=== PATIENT | male | born 1955 | race Caucasian/White ===

== ENCOUNTER → 2022-03-04 09:49 | Outpatient (CLI) | payer BC, SELFPAY ==
--- NOTE | 2022-03-04 09:55 | XR_ITS ---
FINAL REPORT CLINICAL HISTORY: LT HAND PAIN,R/O FB FINDINGS: LEFT HAND Three views demonstrate no acute fracture or dislocation. There is mild and moderate degenerative change of the 1st carpometacarpal joint. The soft tissues are unremarkable. IMPRESSION: Degenerative change with no acute process. Reviewed, Interpreted and Dictated by Micah Quiñones III, MD Transcribed by Tesha Bang Authenticated by Micah Quiñones III, MD on 03/04/2022 11:10:09 AM [facility]
--- NOTE | 2022-03-04 09:55 | XR_ITS ---
FINAL REPORT CLINICAL HISTORY: RT HAND PAIN, R/O FB FINDINGS: RIGHT HAND Three views demonstrate no acute fracture or dislocation. There is mild and moderate degenerative change, worst in the 1st carpometacarpal joint. There is dorsal hand soft tissue swelling. IMPRESSION: Soft tissue swelling with no acute bony abnormality. Reviewed, Interpreted and Dictated by Micah Quiñones III, MD Transcribed by Tesha Bang Authenticated by Micah Quiñones III, MD on 03/04/2022 11:10:[address] [facility]
== END ==
PROVIDERS: PCP Internal Medicine Adolescent Medicine; Visit Provider Nurse Practitioner Family
DX: M79.641 Pain in right hand (principal); M79.642 Pain in left hand
CPT/HCPCS: 73130

== ENCOUNTER → 2023-08-13 07:58 | Outpatient (CLI) | payer BC, SELFPAY ==
--- NOTE | 2023-08-13 08:21 | XR_ITS ---
PROCEDURE INFORMATION: Exam: XR Chest Exam date and time: 08/13/2023 8:23 AM Age: 67 years old Clinical indication: Cough; Additional info: Chronic cough TECHNIQUE: Imaging protocol: Radiologic exam of the chest. Views: 2 views. COMPARISON: No relevant prior studies available. FINDINGS: Lungs: No consolidation. Pleural spaces: No pleural effusion. No pneumothorax. Heart/Mediastinum: No cardiomegaly. Bones/joints: There are degenerative changes of the spine. IMPRESSION: There is no evidence of active pulmonary disease.
[2023-08-13 08:24] LABS: Basophils % 0.6 % (0.1-2.0); Eosinophils # 0.1 K/mm3 (0.0-0.4); Eosinophils % 1.9 % (0.1-12.0); Hematocrit 48.1 % (42.0-52.0); Hemoglobin 16.1 g/dL (14.1-18.0); Lymphocytes # 1.4 K/mm3 (0.7-4.5); Lymphocytes % 25.4 % (10-50); Mean Corpuscular HGB Conc 33.5 g/dL (31.8-35.4); Mean Corpuscular Hemoglobin 32.5 pg (27.0-31.2); Mean Corpuscular Volume 97.1 fl (80-94); Mean Platelet Volume 7.4 fl (7.4-10.4); Monocytes # 0.6 K/mm3 (0.1-1.0); Monocytes % 11.1 % (1.7-9.3); Neutrophils # 3.3 K/mm3 (1.8-7.8); Neutrophils % 61.1 % (37.0-80.0); Platelet Count 230 K/mm3 (142-424); Red Blood Count 4.95 M/mm3 (4.60-6.20); Red Cell Distribution Width 14.2 % (11.5-17.5); White Blood Count 5.4 K/mm3 (4.8-10.8)
[2023-08-13 09:47] LABS: Chloride 97 mmol/L (98-107); Potassium 3.7 mmoL/L (3.5-5.1); Sodium 135 mmol/L (136-145)
[2023-08-13 09:50] LABS: Alanine Aminotransferase 25 U/L (12-78); Albumin Level 4.2 g/dl (3.5-5.0); Albumin/Globulin Ratio 1.3 (1.1-1.8); Alkaline Phosphatase 69 U/L (38-126); Anion Gap 7.7 mEq/L (5-15); Aspartate Amino Transferase 30 U/L (17-59); Bilirubin,Total 0.3 mg/dl (0.2-1.3); Blood Urea Nitrogen 19 mg/dl (9-20); Carbon Dioxide 34 mmol/L (22.0-30.0); Cholesterol 179 mg/dl (140-200); Estimated Glomerular Filt Rate 55 ml/min (>60); GFR (African American) 67 ML/MIN (>60); Globulin 3.2 g/dL (1.3-3.2); Total Protein,Serum 7.4 g/dl (6.3-8.2); Triglycerides 134 mg/dl (30-150); VLDL Cholesterol 27 mg/dL (0-40)
[2023-08-13 09:51] LABS: Calcium 8.9 mg/dl (8.4-10.2); Chol/HDL Ratio 5.3 (1-3.5); Glucose 120 mg/dl (74-100); HDL Cholesterol 34 mg/dl (40-60)
[2023-08-13 09:57] LABS: C-Reactive Protein 27.2 mg/L (0-4)
[2023-08-13 10:02] LABS: Direct LDL Cholesterol 113.86 mg/dL (100-129)
[2023-08-13 10:12] LABS: Erythrocyte Sedimentation Rate 14 mm/hr (0-20)
== END ==
PROVIDERS: PCP Internal Medicine Adolescent Medicine; Visit Provider Internal Medicine Adolescent Medicine
DX: R05.3 Chronic cough (principal); I10 Essential (primary) hypertension; L03.119 Cellulitis of unspecified part of limb; Z86.39 Personal history of other endocrine, nutritional and metabolic disease
CPT/HCPCS: 36415; 71046; 80053; 80061; 85025; 85651; 86140

== ENCOUNTER → 2023-08-25 07:45 | Outpatient (CLI) | payer BC, SELFPAY ==
--- NOTE | 2023-08-25 08:01 | US_ITS ---
FINAL REPORT CLINICAL HISTORY: H/O TOBACCO USE FINDINGS: ULTRASOUND ABDOMINAL AORTA, SCREENING Limited sonographic images were obtained of the abdomen to evaluate the abdominal aorta and iliac arteries. The abdominal aorta measures up to 2.2 cm in greatest dimension. The iliac arteries are within normal limits. IMPRESSION: No evidence of abdominal aortic aneurysm. Reviewed, Interpreted and Dictated by Yasmin Wren MD Transcribed by Georgia Moe Authenticated and [facility]
== END ==
PROVIDERS: PCP Internal Medicine Adolescent Medicine; Visit Provider Internal Medicine Adolescent Medicine
DX: Z87.891 Personal history of nicotine dependence (principal)
CPT/HCPCS: 76705

== ENCOUNTER → 2023-08-26 14:36 | Outpatient (CLI) | payer BC, SELFPAY ==
--- NOTE | 2023-08-26 14:40 | CT_ITS ---
FINAL REPORT TECHNIQUE: Thin section axial images were obtained through the lungs using a low-dose technique per lung cancer screening protocol. Reconstruction images were obtained using the axial data. Exam was performed using dose reduction technique. CLINICAL HISTORY: NICOTINE USE, CURRENT SMOKER 1PPD FOR 25 YEARS FINDINGS: CTDLvol: 2.90 DLP: 101.86 Lungs: No acute pulmonary abnormality. No suspicious nodules. Lymph nodes: No thoracic lymphadenopathy. Mediastinum: Heart size is normal. Pleura/pericardium: No pleural or pericardial effusion. Other: No acute abnormality in the upper abdomen. IMPRESSION: No suspicious pulmonary nodule or mass. Lung RADS: 1 Recommendation: Recommend chest CT low-dose in 12 months Reviewed, Interpreted and Dictated by Yasmin Wren MD Transcribed by Zainab Mead Authenticated and [facility]
== END ==
PROVIDERS: PCP Internal Medicine Adolescent Medicine; Visit Provider Internal Medicine Adolescent Medicine
DX: Z87.891 Personal history of nicotine dependence (principal)
CPT/HCPCS: 71271

== ENCOUNTER 2023-12-14 14:45 | Outpatient (CLI) | payer BC, SELFPAY ==
--- NOTE | 2023-12-14 14:52 | CA_ITS ---
FINAL REPORT TECHNIQUE: Arterial duplex Doppler evaluation of the lower extremities with spectral analysis. CLINICAL HISTORY: CLAUDICATION, HTN, smoker, wound right lower leg x 1 month, obesity, smoker. COMPARISON: None FINDINGS: Right lower extremity, flow velocities (cm per second): Common femoral artery: 86 Proximal SFA: 34 Distal SFA: 50 Peroneal artery: 28 Posterior tibial artery: 44 Left lower extremity, flow velocities (cm per second): Common femoral artery: 129 Proximal SFA: 90 Distal SFA: 82 Peroneal artery: 94 Posterior tibial artery: 101 IMPRESSION: In the right leg, the waveforms are all monophasic, which is concerning for more proximal stenosis. In the left leg, velocities are all triphasic. Reviewed, Interpreted and Dictated by Yasmin Wren MD Transcribed by Jessica Oropeza Authenticated and [facility]
== END 2023-12-14 23:59 ==
LOC: RT 14:46
PROVIDERS: PCP Internal Medicine Adolescent Medicine; Visit Provider Internal Medicine Adolescent Medicine
DX: I73.9 Peripheral vascular disease, unspecified (principal); L97.911 Non-pressure chronic ulcer of unspecified part of right lower leg limited to breakdown of skin
CPT/HCPCS: 93925

== ENCOUNTER 2024-01-20 10:00 | Outpatient (RCR) | payer BC, SELFPAY ==
--- NOTE | 2023-12-09 11:20 | HMH.PTOPWND ---
Rehab Outpt Wound Evaluation Rehab OP Wound Evaluation Start: 12/09/23 11:12 Freq: Status: Active Protocol: Document 12/09/23 11:13 BELLA (Rec: 12/09/23 11:20 PHORVALORIE [id number]) E-signed By Flavio Abreu, PT Subjective/History History History This is the initial PT eval for Fabio Abdi, 68 yowm who presents with R anterior lower leg wound and LE edema. He reports the wound has been present x ~ 3 wks with insidious onset. He reports no c/o pain, tenderness, or numbness/tingling in the R LE. He reports PMH of HTN. Subjective Subjective Current pain is 0/10. Erythema is limited to jose-wound area and no further on the R LE. Minimal 1+ pitting edema noted this date. Blue telangiectasis noted to medial R ankle. New diagnosis of cancer in past 12 No months? Wound Eval Wound Right Lower Hunt Wound Type unknown cause Is This a Chronic Wound Yes Wound Length (cm) 8.0 Wound Width (cm) 8.0 Wound Depth (cm) 0.1 Wound Bed Appearance Dwight,Peeling Skin Wound Margins Description Well Defined Surrounding Tissue Appearance Bright Red Edema Type Pitting Edema Degree 1+ Query Text:1+ Trace, Barely Detectable, Rebound 15-30 seconds 2+ Moderate, Slight Indentation, Rebound 10-20 seconds 3+ Deep, Deeper Indentation, Rebound > 30 seconds 4+ Very Deep, Rebound > 60 seconds Drainage Amount None Wound Topical Solution/Irrigant Saline Irrigant Primary Dressing Composite Comment aquaphor, optifoam thin Wound Debridement Method Forceps,Gauze,Mechanical Wound Debridement Amount of Tissue Minimal Removed Dressing Change Patient Tolerance Tolerated Well Wound Problems/Impairments Impairments Problems/Impairmments Increased Edema,Wound Care Needs,Impaired Self Care/Self Management Prognosis Rehab Potential Good Clinical Impression Consistent with Diagnosis Yes Short Term Goals Number of Weeks 2 Decrease Wound Area Yes: by 25% Patient to Understand Lymphedema Yes Treatment and Exercises Custodial Goals Number of Weeks 4 Decrease Edema Yes: no pitting edema Decrease Wound Area Yes: by 75% Patient to be Ind w/ HEP Yes Patient to Adhere Lymphedema Precautions Yes Outpatient Therapy Plan of Care Treatment Plan May Include Therapeutic Exercise Including Home Yes Exercise Program Manual Therapy Techniques Yes Neuromuscular Re-education Yes Therapeutic Activities to Return to Yes Previous Functional/Work Level ADL/Self Care Education Yes Orthotics/Bracing/Splinting Yes Manual Lymphatic Drainage Yes Wound Care Yes Eval/Re-Eval Yes Frequency Times per week 1-2 Duration Number of Weeks 4 Addendums This patient is a candidate for social No or vocational rehab? Patient/Guardian verbally acknowledges Yes understanding of treatment program and consents to further treatment? Patient/Guardian verbally acknowledges Yes understanding of diagnosis, prognosis and goals for treatment? Eval Complexity PT Charges 75727 - High Complexity PHYSICIAN CERTIFICATION: I certify the specified therapy services for Jin Mccarthy are required, authorized, and reviewed every 30 days.
== END 2024-01-20 10:05 | disposition home or self-care (01) ==
LOC: PT 10:00
PROVIDERS: PCP Internal Medicine Adolescent Medicine; Visit Provider Internal Medicine Adolescent Medicine
DX: M79.661 Pain in right lower leg (principal); I89.0 Lymphedema, not elsewhere classified; I87.2 Venous insufficiency (chronic) (peripheral); I73.9 Peripheral vascular disease, unspecified
CPT/HCPCS: 97140; 97163; 97597

== ENCOUNTER 2024-02-24 15:00 | Outpatient (RCR) | payer BC, SELFPAY ==
--- NOTE | 2024-02-15 12:05 | HMH.PTOPWND ---
Rehab Outpt Wound Evaluation Rehab OP Wound Evaluation Start: 02/15/24 11:40 Freq: Status: Active Protocol: Document 02/15/24 11:40 BELLA (Rec: 02/15/24 12:01 BELLA [id number]) E-signed By Flavio Abreu, PT Subjective/History History History This is the initial PT eval for Jin Mccarthy, 68 yowm who presents with anterior R ankle.mike wound x ~ 5-6 mos with insidious onset of symptoms. He is accompanied by his who also provdies some history. He does report no known cause, but he thinks my old work boots were rubbing my leg. 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 He had arterial duplex US performed 12/14/23 which did show significantly reduced R LE blood flow throughout vs L LE. He also reports recent finding of R LE DVT and is on anticoagulant. He reports PMH of HTN and HLD. Subjective Subjective Currently he reports no pain, 0/10, in the R LE. He has 1+ pitting edema in the R foot and ankle. Significang erythema throughout the wound area with the superior portion showing palpable pettechiae. New diagnosis of cancer in past 12 No months? Wound Eval Wound Right Lower Mike Wound Type unknown etiology Is This a Chronic Wound Yes Wound Length (cm) 20.0 Wound Width (cm) 18.0 Wound Depth (cm) 0.1 Wound Bed Appearance Shiny,Peeling Skin Wound Margins Description Indistinct Surrounding Tissue Appearance Bright Red,Dark Red Edema Type Pitting Edema Degree 1+ Query Text:1+ Trace, Barely Detectable, Rebound 15-30 seconds 2+ Moderate, Slight Indentation, Rebound 10-20 seconds 3+ Deep, Deeper Indentation, Rebound > 30 seconds 4+ Very Deep, Rebound > 60 seconds Drainage Description Serous Drainage Amount Small Dressing Status Open to Air Wound Topical Solution/Irrigant Saline Irrigant Primary Dressing 2-layer wrap Comment 2 layer claminc compression wrap system Wound Debridement Method Forceps,Gauze,Mechanical Wound Debridement Amount of Tissue Minimal Removed Dressing Change Patient Tolerance Tolerated Well Wound Problems/Impairments Impairments Problems/Impairmments Wound Care Needs,Impaired Self Care/Self Management Prognosis Rehab Potential Good Clinical Impression Consistent with Diagnosis Yes Short Term Goals Number of Weeks 4 Decrease Wound Area Yes: by 25% Manufacturing Executive Goals Number of Weeks 6-8 Improve Tolerance to Work Activities Yes Decrease Wound Area Yes: by 75% Patient to be Ind w/ HEP Yes Patient to be Ind w/ Home Wound Care/ Yes Dressing Changes Outpatient Therapy Plan of Care Treatment Plan May Include Therapeutic Exercise Including Home Yes Exercise Program Manual Therapy Techniques Yes Neuromuscular Re-education Yes Therapeutic Activities to Return to Yes Previous Functional/Work Level ADL/Self Care Education Yes Electrical Stimulation Yes Ultrasound/Phonophoresis Yes Orthotics/Bracing/Splinting Yes Wound Care Yes Eval/Re-Eval Yes Frequency Times per week 2 Duration Number of Weeks 6-8 Addendums This patient is a candidate for social No or vocational rehab? Patient/Guardian verbally acknowledges Yes understanding of treatment program and consents to further treatment? Patient/Guardian verbally acknowledges Yes understanding of diagnosis, prognosis and goals for treatment? Eval Complexity PT Charges 37932 - High Complexity PHYSICIAN CERTIFICATION: I certify the specified therapy services for Jin Mccarthy are required, authorized, and reviewed every 30 days.
== END 2024-02-24 15:05 | disposition home or self-care (01) ==
LOC: PT 15:00
PROVIDERS: Visit Provider Internal Medicine Adolescent Medicine
DX: M25.572 Pain in left ankle and joints of left foot (principal); S91.001D Unspecified open wound, right ankle, subsequent encounter
CPT/HCPCS: 29580; 97140; 97163; 97597

== ENCOUNTER 2024-03-29 02:47 | Emergency (ER) | payer BC, MEDICARE, SELFPAY ==
[2024-03-29 02:47] VITALS: BP 110/62; PULSE 60; RESP 21; TEMP 36.9; O2SAT 95; BMI 32.6
--- NOTE | 2024-03-29 02:55 | XR_ITS ---
PROCEDURE INFORMATION: Exam: XR Chest Exam date and time: 03/29/2024 2:59 AM Age: 68 years old Clinical indication: Cough; Additional info: Cough, congestion TECHNIQUE: Imaging protocol: Radiologic exam of the chest. Views: 2 views. COMPARISON: CT LUNG SCREENING 08/26/2023 2:47 PM FINDINGS: Lungs: Unremarkable. No consolidation. Pleural spaces: Unremarkable. No pleural effusion. No pneumothorax. Heart/Mediastinum: Unremarkable. No cardiomegaly. Bones/joints: Degenerative change of the visualized osseous structures. IMPRESSION: No acute cardiopulmonary findings.
--- NOTE | 2024-03-29 02:56 | ECG_ITS ---
APPROVED REPORT Exam: Resting ECG HR:60 bpm ECG Measurements Heart Rate 60 AXES NH 184 P 77 QRSd 109 QRS -13 QT 397 T 84 QTc 397 Conclusion SINUS RHYTHM NONSPECIFIC T-WAVE ABNORMALITY Electronically signed by : DNAIELLA SAUCEDO, 03/29/2024 03:49:03
--- NOTE | 2024-03-29 02:56 | HMH.EDGENADL ---
Discharge Plan Disposition Patient Disposition: Home, Self-Care Condition: Good Chief Complaint: Upper Respiratory Infection Referrals Follow up/Referrals: Jesus Clark MD [Primary Care Provider] - See instructions Activity Restrictions/Add. Instructions Additional Instructions/Restrictions: Follow-up with your primary care provider for continued evaluation and management return for any new or worsening symptoms. Clinical Impressions Clinical Impression: Cough Instructions Patient Instructions: Cough, DI for Viral Syndrome Discharge ED Provider: Daksha Souza General Adult HPI General Chief complaint: Upper Respiratory Infection Stated complaint: post op issue Time Seen by Provider: 03/29/24 02:52 History of Present Illness HPI narrative: Patient is a 68-year-old male with past medical history of DVT on Eliquis presenting with cough. Patient had a procedure to remove the clot in his right calf [address] [place] outpatient procedure and has been recovering otherwise well, reports compliance with his Eliquis. He does take tramadol nightly and reports taking it tonight and he has had a cough tonight but his has been worried about but when he got up to go to the restroom he seems slightly shaky and got a little dizzy that he thinks is from the tramadol but his was concerned and called EMS. He denies any complaints and was hemodynamically stable for EMS. Denies dizziness, shortness of breath, any pain including no chest pain or abdominal pain, nausea, vomiting. Related Data Allergies Allergy/AdvReac Type Severity Reaction Status Date / Time oxycodone [OXYCODONE] Allergy Mild HYPERACTIVE Unverified 10/04/17 14:14 [facility] Disclaimer: The information contained in this section may have been updated after the patient was seen, as this information can be updated by other users. Social History Smoking Status: Current every day smoker alcohol intake: never current occupational status: other Travel in the last 8 weeks: None ROS Obtained: Yes Systems reviewed as appropriate & no additional complaints except as documented Physical Exam General General appearance: alert and in no apparent distress Head Head exam: atraumatic and normocephalic Chest Chest inspection: Present normal inspection and symmetric chest wall rise Respiratory Respiratory exam: Present normal lung sounds bilaterally; Absent respiratory distress Cardiovascular Cardiovascular exam: Present regular rate and normal rhythm Abdominal Exam Abdominal exam: Present soft; Absent distention or tenderness Extremities Exam Extremities exam: Present normal inspection and other (Right lower extremity does have a lower venous stasis rash, upper medial calf with postsurgical areas clean, dry, intact without drainage or erythema, nontender) Neurological Exam Neurological exam: Present alert and oriented X3 Psychiatric Psychiatric exam: Present normal affect Skin Skin exam: Present warm and dry Medical Decision Making Medical Records Medical records reviewed: Yes I reviewed the patient's medical records. Kyrie Inquiry Pt receiving controlled substance: No Vital Signs: 03/29/24 02:47 Temperature 98.5 F Temperature Source Oral Pulse Rate [Left Radial] 60 Respiratory Rate 21 Blood Pressure [Right Arm] 110/62 Blood Pressure Mean [Right Arm] 78 Blood Pressure Source [Right Arm] Automatic Cuff Blood Pressure Position [Right Arm] Sitting 02 Sat by Pulse Oximetry 95 Oxygen Delivery Method Room Air Lab Data Lab results reviewed: Yes I reviewed the patient's lab results. Lab Results 03/29/24 02:55: WBC 10.3, RBC 4.37 L, Hgb 13.9 L, Hct 42.3, MCV 96.9 H, MCH 31.9 H, MCHC 32.9, RDW 13.9, Plt Count 358, MPV 7.1 L, Neut % (Auto) 67.0, Lymph % (Auto) 25.5, [place] % (Auto) 5.0, Eos % (Auto) 1.8, Baso % (Auto) 0.6, Neut # (Auto) 6.9, Lymph # (Auto) 2.6, [place] # (Auto) 0.5, Eos # (Auto) 0.2, Baso # (Auto) 0.1, Sodium 138, Potassium 3.5, Chloride 99, Carbon Dioxide 31 H, Anion Gap 11.5, BUN 27 H, Creatinine 1.40 H, Estimated GFR 51 L, Est GFR ( Amer) 61, Glucose 108 H, Calcium 9.6, Troponin I < 0.01 03/29/24 02:55 03/29/24 02:55 Orders (Tests/Meds): ED MEDICATIONS Generic Name Dose Route Start Last Admin Trade Name Freq PRN Reason Stop Dose Admin Sodium Chloride 10 ml 03/29/24 02:54 Sodium Chloride 0.9% 10ml Flush Syringe IV 04/28/24 02:53 NEEDED PRN Maintain IV Site ORDERS Category Date Time Status XR chest 2V Stat Exams 03/29/24 02:55 Taken Basic Metabolic Panel Stat Lab 03/29/24 02:55 Completed Complete Blood Count Auto Diff Stat Lab 03/29/24 02:55 Completed Troponin I Stat Lab 03/29/24 02:55 Completed ECG Data Tracing #1: I reviewed this ECG and interpreted as documented below: EKG at a rate of 60, sinus rhythm with no acute ischemia or infarction, normal intervals ECG initial impression date: 03/29/24 ECG initial impression time: 03:03 HEART Score History (anamnesis): Slightly suspicious ECG: Normal Age: >65 years Risk factors: 1-2 risk factors Troponin: </= normal limit HEART Score: 3 Medical Decision Narrative: Patient is a 68-year-old male with past medical history of DVT on Eliquis presenting with cough 2 days after right lower extremity DVT removal from outpatient procedure. He has been compliant with Eliquis and reports no complaints. He has been taking tramadol nightly for symptoms and does report taking that tonight and he did take this and believes this was why he may have gotten dizzy upon walking to the bathroom. He denies any symptoms including no shortness of breath, chest pain, abdominal pain, hematemesis and is hemodynamically stable. He does have some postsurgical changes of the medial right calf but is clean, dry, intact without drainage or erythema. He is not tachycardic, tachypneic exam is otherwise unremarkable. Will obtain blood work for further evaluation. Given hemodynamically stability without tachycardia, tachypnea EKG without acute ischemia or infarction, CBC nonactionable, BMP showing creatinine of 1.4 but it is comparable to blood work in July with creatinine of 1.3, troponin negative, chest x-ray per my review showing no acute process or focal pneumonia. Given results and patient hemodynamically stable with no tachycardia, tachypnea or oxygen requirement discussed reassuring results and recommended symptomatic management at home with patient and at bedside who are agreeable with plan and requesting discharge for which patient is stable and appropriate. I will notify them of any abnormal XR results. Discharged in stable condition. Critical Care Critical Care Time Critical Care Time: No
[2024-03-29 03:04] LABS: Basophils # 0.1 K/mm3 (0-0.2); Basophils % 0.6 % (0.1-2.0); Eosinophils # 0.2 K/mm3 (0.0-0.4); Eosinophils % 1.8 % (0.1-12.0); Hematocrit 42.3 % (42.0-52.0); Hemoglobin 13.9 g/dL (14.1-18.0); Lymphocytes # 2.6 K/mm3 (0.7-4.5); Lymphocytes % 25.5 % (10-50); Mean Corpuscular HGB Conc 32.9 g/dL (31.8-35.4); Mean Corpuscular Hemoglobin 31.9 pg (27.0-31.2); Mean Corpuscular Volume 96.9 fl (80-94); Mean Platelet Volume 7.1 fl (7.4-10.4); Monocytes # 0.5 K/mm3 (0.1-1.0); Neutrophils # 6.9 K/mm3 (1.8-7.8); Platelet Count 358 K/mm3 (142-424); Red Blood Count 4.37 M/mm3 (4.60-6.20); Red Cell Distribution Width 13.9 % (11.5-17.5); White Blood Count 10.3 K/mm3 (4.8-10.8)
[2024-03-29 03:05] LABS: Chloride 99 mmol/L (98-107); Potassium 3.5 mmoL/L (3.5-5.1); Sodium 138 mmol/L (136-145)
[2024-03-29 03:08] LABS: Anion Gap 11.5 mEq/L (5-15); Blood Urea Nitrogen 27 mg/dl (9-20); Calcium 9.6 mg/dl (8.4-10.2); Carbon Dioxide 31 mmol/L (22.0-30.0); Estimated Glomerular Filt Rate 51 ml/min (>60); GFR (African American) 61 ML/MIN (>60); Glucose 108 mg/dl (74-100)
[2024-03-29 03:21] LABS: Troponin I < 0.01 ng/ml (0.00-0.034)
[2024-03-29 04:08] VITALS: BP 122/78; PULSE 57; RESP 18; TEMP 36.7; O2SAT 97
== END 2024-03-29 04:08 | disposition home or self-care (01) ==
PROVIDERS: Emergency Provider Emergency Medicine; PCP Internal Medicine Adolescent Medicine
DX: R05.9 Cough, unspecified (principal); F17.210 Nicotine dependence, cigarettes, uncomplicated; Z86.718 Personal history of other venous thrombosis and embolism; Z79.01 Long term (current) use of anticoagulants
CPT/HCPCS: 71046; 80048; 84484; 85025; 93005; 99284

== ENCOUNTER 2025-01-07 07:54 | Outpatient (CLI) | payer MEDICARE, SELFPAY ==
--- NOTE | 2025-01-07 07:56 | CT_ITS ---
FINAL REPORT TECHNIQUE: Thin section axial images were obtained through the lungs using a low-dose technique per lung cancer screening protocol. Reconstruction images were obtained using the axial data. Exam was performed using dose reduction technique. This study was performed with techniques to keep radiation doses as low as reasonably achievable (ALARA). Individualized dose reduction techniques using automated exposure control or adjustment of mA and/or kV according to the patient's size were employed. CLINICAL HISTORY: HX OF NICOTINE CURRENT SMOKER 1PPD X30 YEARS COMPARISON: 08/26/2023 FINDINGS: CTDLvol: 2.90 DLP: 118.29 Current smoker 30 pack year history Lungs: No acute pulmonary abnormality. No suspicious nodules. There are linear filling defects in the distal trachea and right mainstem bronchus, that may represent retained secretions/mucus. Lymph nodes: No thoracic lymphadenopathy. Mediastinum: Heart size is normal. Pleura/pericardium: No pleural or pericardial effusion. Other: Prominent coronary artery calcifications are noted. Nonobstructing stones are present in the left kidney. IMPRESSION: No suspicious pulmonary nodule or mass. Lung RADS: 1S, the S designation for coronary artery calcifications. Recommendation: 12-month follow-up LDCT. Reviewed, Interpreted and Dictated by Yasmin Wren MD Transcribed by Jessica Oropeza Authenticated and [facility]
== END 2025-01-07 23:59 | disposition home or self-care (01) ==
LOC: RAD 07:55
PROVIDERS: PCP Internal Medicine Adolescent Medicine; Visit Provider Internal Medicine Adolescent Medicine
DX: Z87.891 Personal history of nicotine dependence (principal)
CPT/HCPCS: 71271